=== PATIENT | female | born 1950 | race Caucasian/White ===

== ENCOUNTER 2019-07-31 10:14 | Emergency (ER) | payer MEDICARE ==
[~2019-07-31] VITALS: Ht 172.7 cm; Wt 93.7 kg
[~2019-07-31 10:14] MED LIST: ESTR1TAB15 PO; LEVO75TA5 PO; OXYC10TA6 PO
[2019-07-31 10:18] VITALS: BP 111/76
[2019-07-31 11:28] LABS: RAPID INFLUENZA A Negative (Negative); RAPID INFLUENZA B Negative (Negative)
== END 2019-07-31 12:01 | disposition home or self-care (01) ==
LOC: ED 11:45
DX: J20.9 Acute bronchitis, unspecified (principal); J02.8 Acute pharyngitis due to other specified organisms; B97.89 Other viral agents as the cause of diseases classified elsewhere; E03.9 Hypothyroidism, unspecified; Z87.891 Personal history of nicotine dependence
CPT/HCPCS: 71046; 87081; 87400; 87880; 99284